=== PATIENT | male | born 1980 | race African-American/Black ===

== ENCOUNTER 2020-07-11 17:25 | Emergency (ER) | payer OTHER ==
[~2020-07-11] VITALS: Ht 195.6 cm; Wt 111.1 kg
--- NOTE | 2020-07-11 18:27 | NUR ---
PT AMBULATED TO ROOM FROM LOBBY. PT CO LEFT CP X3 WEEKS. PT STATED THAT THE PAIN IS INTERMITTENT. PT DENIES ANY SOB, COUGH, FEVER, N/V/D.
[2020-07-11] MEDS ORDERED: SODIUM CHLORIDE FLUSH 10ML SYR IVF ONE (18:30)
[2020-07-11 19:00] VITALS: BP 133/78
--- NOTE | 2020-07-11 19:00 | NUR ---
PT RESTING IN RNEY COMFORTABLY. CALL LIGHT WITHIN REACH
[2020-07-11 19:04] LABS: ALBUMIN 4.1 g/dL (3.4-5.0); ANION GAP 7 mmol/L (5-15); CALCIUM 8.9 mg/dL (8.5-10.1); CHLORIDE 110 mmol/L (98-107)
[2020-07-11 19:07] LABS: BASOPHILS % (AUTO) 1 % (0-1); EOSINOPHILS % (AUTO) 3 % (1-7); LYMPHOCYTES % (AUTO) 21 % (22-44); MEAN CORPUSCULAR HEMOGLOBIN 32.2 pg (27.5-34.5); MEAN CORPUSCULAR HGB CONC 33.9 g/dL (33.2-36.2); MEAN PLATELET VOLUME 7.8 fL (7.4-10.4); MONOCYTES % (AUTO) 7 % (2-9); NEUTROPHILS % (AUTO) 68 % (42-75); PLATELET COUNT 334 x10^3/uL (130-400); RED BLOOD COUNT 4.51 x10^6/uL (4.38-5.82); RED CELL DISTRIBUTION WIDTH 12.8 % (9.4-14.8)
[2020-07-11 19:09] LABS: ALANINE AMINOTRANSFERASE 72 U/L (12-78); ALKALINE PHOSPHATASE 67 U/L (45-117); BILIRUBIN,TOTAL 2.4 mg/dL (0.2-1.0); CREATININE 1.08 mg/dL (0.7-1.3); TOTAL PROTEIN 7.2 g/dL (6.4-8.2); TROPONIN I < 0.015 ng/mL (0.000-0.045)
[2020-07-11 19:11] LABS: MD NO
--- NOTE | 2020-07-11 19:51 | NUR ---
DISCHARGE INSTRUCTIONS REVIEWED WITH PT. ALL QUESTIONS ANSWERED AT THIS TIME.
== END 2020-07-11 19:53 | disposition home or self-care (01) ==
LOC: ED 18:58
DX: R07.2 Precordial pain (principal); R94.5 Abnormal results of liver function studies; I10 Essential (primary) hypertension; R07.89 Other chest pain; R00.0 Tachycardia, unspecified
CPT/HCPCS: 36415; 71045; 80053; 83880; 84484; 85025; 93005; 99285